=== PATIENT | male | born 1960 | race Caucasian/White ===

== ENCOUNTER 2021-05-15 04:52 | Day surgery (SDC) | payer OTHER ==
[2021-04-30 14:56] VITALS: BMI 33.0
[2021-05-15] MEDS ORDERED: DEXAMETHASONE SOD PHOSPHATE 10 MG/1 ML VIAL ONE (13:25)
[2021-05-15] MEDS ORDERED: BUPIVACAINE HCL/PF 0.75% 10 ML VIAL ONE (13:25)
[2021-05-15] MEDS ORDERED: IOHEXOL 180 MG/1 ML ML IJ ONE (13:32)
[2021-05-15] MEDS ORDERED: BUPIVACAINE HCL/PF 0.5% (5 MG/ML) 30 ML VIAL IJ ONE (13:32)
[2021-05-15 15:26] VITALS: BP 130/80; PULSE 70; TEMP 97.8
== END 2021-05-15 15:10 | disposition home or self-care (01) ==
LOC: JASU-SURG 04:52
PROVIDERS: ATTEND Pain Medicine Pain Medicine
PROC: BR14YZZ Fluoroscopy of Cervical Facet Joint(s) using Other Contrast (ICD-10-PCS; 2021-05-15)
PROC: 3E0T3BZ Introduction of Anesthetic Agent into Peripheral Nerves and Plexi, Percutaneous Approach (ICD-10-PCS; principal; 2021-05-15 10:30)
DX: M47.812 Spondylosis without myelopathy or radiculopathy, cervical region (principal)
CPT/HCPCS: 76000-TC-FY; J1100

== ENCOUNTER 2021-06-15 04:24 | Day surgery (SDC) | payer OTHER ==
[2021-06-04 13:01] VITALS: BMI 33.0
[2021-06-15] MEDS ORDERED: IOHEXOL 180 MG/1 ML ML IJ ONE (12:58)
[2021-06-15] MEDS ORDERED: LIDOCAINE HCL 1% PRESERVATIVE FREE - 30ML VIAL IJ ONE (12:59)
[2021-06-15] MEDS ORDERED: BUPIVACAINE HCL/PF 0.5% (5MG/ML) 10 ML VIAL IJ ONE (12:59)
[2021-06-15 13:22] VITALS: BP 131/71; PULSE 57; TEMP 97.8
== END 2021-06-15 13:55 | disposition home or self-care (01) ==
LOC: JASU-SURG 04:24
PROVIDERS: ATTEND Pain Medicine Pain Medicine
PROC: BR14YZZ Fluoroscopy of Cervical Facet Joint(s) using Other Contrast (ICD-10-PCS; 2021-06-15)
PROC: 3E0T3BZ Introduction of Anesthetic Agent into Peripheral Nerves and Plexi, Percutaneous Approach (ICD-10-PCS; principal; 2021-06-15 11:45)
DX: M47.812 Spondylosis without myelopathy or radiculopathy, cervical region (principal)
CPT/HCPCS: 76000-TC-FY

== ENCOUNTER 2021-08-21 04:25 | Day surgery (SDC) | payer OTHER ==
[2021-08-16 11:09] VITALS: BMI 33.0
[~2021-08-21 04:25] MED LIST: BUPIVACAINE HCL/PF 0.75% 10 ML VIAL NR ONE; IOHEXOL 180 MG/1 ML ML IJ ONE
[2021-08-21] MEDS ORDERED: LIDOCAINE HCL/PF 1% SDV 5ML VIAL ONE (12:06)
[2021-08-21] MEDS ORDERED: LIDOCAINE HCL 1% PRESERVATIVE FREE - 30ML VIAL IJ ONE (12:14)
[2021-08-21] MEDS ORDERED: IOHEXOL 180 MG/1 ML ML IJ ONE (12:20)
[2021-08-21] MEDS ORDERED: BUPIVACAINE HCL/PF 0.75% 10 ML VIAL NR ONE (12:21)
[2021-08-21 12:49] VITALS: BP 147/78; PULSE 62; TEMP 98.2
== END 2021-08-21 13:15 | disposition home or self-care (01) ==
LOC: JASU-SURG 04:25
PROVIDERS: ATTEND Pain Medicine Pain Medicine
PROC: BR16YZZ Fluoroscopy of Lumbar Facet Joint(s) using Other Contrast (ICD-10-PCS; 2021-08-21)
PROC: 3E0T3BZ Introduction of Anesthetic Agent into Peripheral Nerves and Plexi, Percutaneous Approach (ICD-10-PCS; principal; 2021-08-21 08:30)
DX: M47.816 Spondylosis without myelopathy or radiculopathy, lumbar region (principal)
CPT/HCPCS: 76000-TC-FY; C9803; U0003; U0005

== ENCOUNTER 2021-10-12 04:14 | Day surgery (SDC) | payer OTHER ==
[2021-10-11 12:58] VITALS: BMI 33.0
[2021-10-12] MEDS ORDERED: BUPIVACAINE HCL/PF 0.25% (2.5MG/ML) 10 ML VIAL ONE (10:47)
[2021-10-12] MEDS ORDERED: LIDOCAINE HCL/PF 1% SDV 5ML VIAL ONE (10:47)
[2021-10-12] MEDS ORDERED: LIDOCAINE 1% P/F 10 MG/ML VIAL INF ONE ×2 (11:00)
[2021-10-12] MEDS ORDERED: IOHEXOL 180 MG/1 ML ML IJ ONE (11:07)
[2021-10-12] MEDS ORDERED: TRIAMCINOLONE ACETONIDE 40 MG/ML 10 ML VIAL NR ONE (11:13)
[2021-10-12] MEDS ORDERED: BUPIVACAINE HCL/PF 0.25% (2.5MG/ML) 10 ML VIAL IJ ONE (11:14)
[2021-10-12 11:39] VITALS: BP 129/80; PULSE 62; TEMP 98.9
== END 2021-10-12 12:10 | disposition home or self-care (01) ==
LOC: JASU-SURG 04:14
PROVIDERS: ATTEND Pain Medicine Pain Medicine
PROC: 3E0T3BZ Introduction of Anesthetic Agent into Peripheral Nerves and Plexi, Percutaneous Approach (ICD-10-PCS; principal; 2021-10-12 12:00)
DX: G90.59 Complex regional pain syndrome I of other specified site (principal)
CPT/HCPCS: 76000-TC-FY

== ENCOUNTER 2022-01-22 04:28 | Day surgery (SDC) | payer OTHER ==
[2022-01-17 13:49] VITALS: BMI 33.0
[2022-01-22] MEDS ORDERED: LIDOCAINE HCL/PF 1% SDV 5ML VIAL ONE (07:26)
[2022-01-22] MEDS ORDERED: BUPIVACAINE HCL/PF 0.5% (5MG/ML) 10 ML VIAL ONE (07:26)
[2022-01-22] MEDS ORDERED: LIDOCAINE HCL/PF 2% SDV 5ML VIAL ONE (07:32)
[2022-01-22] MEDS ORDERED: MIDAZOLAM HCL 2 MG/2 ML SINGLE DOSE VIAL ONE (08:49)
[2022-01-22] MEDS ORDERED: LIDOCAINE HCL 1% PRESERVATIVE FREE - 30ML VIAL IJ ONE (09:02)
[2022-01-22] MEDS ORDERED: LIDOCAINE HCL 2% (50ML VIAL) NR ONE ×2 (09:04)
[2022-01-22] MEDS ORDERED: DEXAMETHASONE SOD PHOSPHATE 10 MG/1 ML VIAL IVPUSH ONE ×2 (09:05→09:15)
[2022-01-22] MEDS ORDERED: BUPIVACAINE HCL/PF 0.5% (5MG/ML) 10 ML VIAL IJ ONE ×2 (09:06→09:18)
[2022-01-22 09:45] VITALS: TEMP 97.5
[2022-01-22 10:27] VITALS: BP 134/69; PULSE 62
== END 2022-01-22 10:32 | disposition home or self-care (01) ==
LOC: JASU-SURG 04:28
PROVIDERS: ATTEND Pain Medicine Pain Medicine
CPT/HCPCS: 76000-TC-FY; J1100

== ENCOUNTER 2022-02-22 07:45 | Day surgery (SDC) | payer OTHER ==
[2022-02-20 15:13] VITALS: BMI 33.0
[2022-02-22] MEDS ORDERED: LIDOCAINE 1% P/F 10 MG/ML VIAL PNB ONE (09:39)
[2022-02-22] MEDS ORDERED: BUPIVACAINE HCL/PF 0.75% 10 ML VIAL MM ONE (09:44)
[2022-02-22 10:15] VITALS: BP 121/76; PULSE 67; TEMP 98.8
== END 2022-02-22 10:25 | disposition home or self-care (01) ==
LOC: JASU-SURG 07:45
PROVIDERS: ATTEND Pain Medicine Pain Medicine
PROC: BR16YZZ Fluoroscopy of Lumbar Facet Joint(s) using Other Contrast (ICD-10-PCS; 2022-02-22)
PROC: 3E0T3BZ Introduction of Anesthetic Agent into Peripheral Nerves and Plexi, Percutaneous Approach (ICD-10-PCS; principal; 2022-02-22 09:45)
DX: M47.816 Spondylosis without myelopathy or radiculopathy, lumbar region (principal)
CPT/HCPCS: 76000-TC-FY

== ENCOUNTER 2022-07-19 04:06 | Day surgery (SDC) | payer OTHER ==
[2022-07-17 18:34] VITALS: BMI 33.7
[~2022-07-19 04:06] MED LIST changes: +BUPIVACAINE HCL/PF 0.5% (5MG/ML) 10 ML VIAL PNB ONE; -BUPIVACAINE HCL/PF 0.75% 10 ML VIAL NR ONE; +BUPIVACAINE HCL/PF 0.75% 10 ML VIAL PNB ONE; +DEXAMETHASONE SOD PHOSPHATE 10 MG/1 ML VIAL IVPUSH ONE; +LIDOCAINE 1% P/F 10 MG/ML VIAL PNB ONE; +LIDOCAINE HCL/PF 2% SDV 5ML VIAL PNB ONE
[2022-07-19 07:03] VITALS: TEMP 97.6
[2022-07-19] MEDS ORDERED: LIDOCAINE HCL/PF 2% SDV 5ML VIAL ONE (07:18)
[2022-07-19] MEDS ORDERED: BUPIVACAINE HCL/PF 0.5% (5MG/ML) 10 ML VIAL ONE (07:19)
[2022-07-19] MEDS ORDERED: LIDOCAINE HCL/PF 1% SDV 5ML VIAL ONE (07:20)
[2022-07-19] MEDS ORDERED: BUPIVACAINE HCL/PF 0.75% 10 ML VIAL ONE (07:20)
[2022-07-19] MEDS ORDERED: DEXAMETHASONE SOD PHOSPHATE 10 MG/1 ML VIAL ONE (07:21)
[2022-07-19] MEDS ORDERED: LIDOCAINE HCL/PF 2% SDV 5ML VIAL PNB ONE (08:52)
[2022-07-19] MEDS ORDERED: LIDOCAINE 1% P/F 10 MG/ML VIAL PNB ONE (08:52)
[2022-07-19] MEDS ORDERED: BUPIVACAINE HCL/PF 0.5% (5MG/ML) 10 ML VIAL PNB ONE (08:53)
[2022-07-19] MEDS ORDERED: DEXAMETHASONE SOD PHOSPHATE 10 MG/1 ML VIAL IVPUSH ONE (08:53)
[2022-07-19 09:33] VITALS: BP 135/79; PULSE 51; RESP 20
== END 2022-07-19 10:04 | disposition home or self-care (01) ==
LOC: JASU-SURG 04:06
PROVIDERS: ATTEND Pain Medicine Pain Medicine
PROC: 3E0T3TZ Introduction of Destructive Agent into Peripheral Nerves and Plexi, Percutaneous Approach (ICD-10-PCS; principal; 2022-07-19 08:00)
DX: M47.812 Spondylosis without myelopathy or radiculopathy, cervical region (principal)
CPT/HCPCS: 76000-TC-FY; J1100

== ENCOUNTER → 2023-02-11 | Day surgery (SDC) | payer OTHER ==
[~2023-02-11] MED LIST changes: +ACETAMINOPHEN 500 MG TABLET (FP) PO PRN; -BUPIVACAINE HCL/PF 0.5% (5MG/ML) 10 ML VIAL PNB ONE; +BUPIVACAINE HCL/PF 0.75% 10 ML VIAL ONE; -BUPIVACAINE HCL/PF 0.75% 10 ML VIAL PNB ONE; -DEXAMETHASONE SOD PHOSPHATE 10 MG/1 ML VIAL IVPUSH ONE; +DEXAMETHASONE SOD PHOSPHATE 10 MG/1 ML VIAL ONE; -IOHEXOL 180 MG/1 ML ML IJ ONE; -LIDOCAINE 1% P/F 10 MG/ML VIAL PNB ONE; +LIDOCAINE HCL/PF 1% SDV 5ML VIAL ONE; -LIDOCAINE HCL/PF 2% SDV 5ML VIAL PNB ONE
== END | disposition home or self-care (01) ==
LOC: JASU-SURG 05:30
PROVIDERS: ATTEND Pain Medicine Pain Medicine
DX: Z53.8 Procedure and treatment not carried out for other reasons (principal)
CPT/HCPCS: J1100